=== PATIENT | male | born 1945 | race Caucasian/White ===

== ENCOUNTER → 2016-09-22 | Outpatient (REF) | payer OTHER ==
[~2016-09-22] MED LIST: AGGRCAP; ASPI1TAB PO; ASPI81CH3 PO; ATOR40TA PO; BENA25CA4 PO; CLOP75TA2 PO; DICL500C PO; ECOT325T5; EUCECRE3 TOP; IBUP200T45 PO; INSUH10VL SC; INSULADS SC; INSULANT; LIPI20TA; METO25TA2; METO25TAB PO; MILKSUS PO; MIRA3350 PO; PERCOCET PO; PRIN20TA3; PROBCAP4 PO; SENO8.6T2 PO; TRIA1CR TOP; ZETI10TA; ZETI10TA2 PO; humalog; lipitor
== END ==
LOC: M LAB REF 12:29
PROVIDERS: ATTEND Internal Medicine
DX: A49.01 Methicillin susceptible Staphylococcus aureus infection, unspecified site (principal)

== ENCOUNTER → 2017-01-21 | Outpatient (CLI) | payer BC, OTHER ==
[~2017-01-21] MED LIST changes: -ATOR40TA PO; +ATOR40TA75 PO; -SENO8.6T2 PO; +SENO8.6T5 PO; -ZETI10TA2 PO; +ZETI10TA30 PO
--- NOTE | 2017-01-22 04:20 | REP ---
Clinical: Hypertension . Comparison: 07/26/2015 . Technique: PA and lateral. Findings: The mediastinum and cardiac silhouette are table. Evidence for prior sternotomy and CABG. The lung yoon are clear and without acute consolidation, effusion, or pneumothorax. The skeletal structures are intact and normal. Impression: 1. No acute cardiopulmonary process. Signed by Harry Patel MD 01/22/2017 04:12 A
== END ==
LOC: M RAD 10:29
PROVIDERS: ATTEND Ophthalmology
DX: I10 Essential (primary) hypertension (principal)

== ENCOUNTER → 2017-05-28 | Outpatient (REF) | payer OTHER | LOC: M LAB REF 12:47 | PROVIDERS: ATTEND Internal Medicine | DX: I72.9 Aneurysm of unspecified site (principal) ==

== ENCOUNTER → 2017-09-08 | Outpatient (REF) | payer OTHER ==
[2017-09-08 15:21] LABS: C REACTIVE PROTEIN QUANTITATIV < 0.30 MG/DL (0.00-0.30)
== END ==
LOC: M LAB REF 12:29
DX: I72.9 Aneurysm of unspecified site (principal)

== ENCOUNTER → 2017-10-21 | Outpatient (REF) | payer OTHER | LOC: M LAB REF 15:34 | DX: L97.509 Non-pressure chronic ulcer of other part of unspecified foot with unspecified severity (principal) | CPT/HCPCS: 87186 ==

== ENCOUNTER → 2017-12-01 | Outpatient (REF) | payer OTHER ==
[2017-12-01 18:44] LABS: C REACTIVE PROTEIN QUANTITATIV < 0.30 MG/DL (0.00-0.30)
== END ==
LOC: M LAB REF 17:47
DX: I72.9 Aneurysm of unspecified site (principal)
CPT/HCPCS: 86140

== ENCOUNTER → 2018-02-02 | Outpatient (REF) | payer OTHER | LOC: M LAB REF 10:16 | DX: L03.039 Cellulitis of unspecified toe (principal) ==

== ENCOUNTER → 2018-02-11 | Outpatient (CLI) | payer BC, OTHER ==
[2018-02-11 08:34] LABS: EOS # 0.2 10^3/uL (0.0-0.50); EOS % 5.3 % (0.0-3.0); HEMATOCRIT 34.7 % (42.0-52.0); HEMOGLOBIN 11.4 g/dl (13.5-17.5); IMMATURE GRANULOCYTE % 0.3 % (0-3.0); LYMPH # 0.7 10^3/uL (1.5-4.5); LYMPH % 18.3 % (24.0-44.0); MEAN CORPUSCULAR HEMOGLOBIN 30.6 pg (27.0-33.0); MEAN CORPUSCULAR HGB CONC 32.9 g/dl (32.0-36.5); MEAN CORPUSCULAR VOLUME 93.3 fl (80.0-96.0); MONO # 0.4 10^3/uL (0.0-0.8); MONO % 10.8 % (0.0-5.0); NEUTROPHILS # 2.6 10^3/uL (1.8-7.7); NEUTROPHILS % 64.3 % (36.0-66.0); PLATELET COUNT, AUTOMATED 230 10^3/uL (150-450); RED BLOOD COUNT 3.72 10^6/uL (4.30-6.10); RED CELL DISTRIBUTION WIDTH 12.3 % (11.5-14.5)
[2018-02-11 08:56] LABS: ALBUMIN 3.1 GM/DL (3.2-5.2); ALBUMIN/GLOBULIN RATIO 1.03 (1.00-1.93); ALKALINE PHOSPHATASE 62 U/L (45-117); ALT/SGPT 50 U/L (12-78); ANION GAP 5 MEQ/L (8-16); AST/SGOT 42 U/L (7-37); BILIRUBIN,TOTAL 0.4 MG/DL (0.2-1.0); BLOOD UREA NITROGEN 30 MG/DL (7-18); CALCIUM LEVEL 8.5 MG/DL (8.8-10.2); CARBON DIOXIDE LEVEL 30 MEQ/L (21-32); CHLORIDE LEVEL 110 MEQ/L (98-107); CREATININE FOR GFR 0.91 MG/DL (0.70-1.30); GLOMERULAR FILTRATION RATE > 60.0 (>42); GLUCOSE, FASTING 133 MG/DL (70-100); POTASSIUM SERUM 4.9 MEQ/L (3.5-5.1); SODIUM LEVEL 145 MEQ/L (136-145); TOTAL PROTEIN 6.1 GM/DL (6.4-8.2)
== END ==
LOC: M LAB 07:47
DX: Z01.818 Encounter for other preprocedural examination (principal); M86.9 Osteomyelitis, unspecified; M79.672 Pain in left foot
CPT/HCPCS: 93005

== ENCOUNTER 2018-02-17 14:58 | Day surgery (SDC) | payer BC, OTHER ==
[2018-02-17] MEDS ORDERED: LR 1,000 ML IV (15:15)
[2018-02-17] MEDS ORDERED: LIDOCAINE 1% MDV 20ML VIAL SQ (15:15)
[2018-02-17] MEDS ORDERED: AMPICILLIN SOD/SULBACTAM SOD 3 GM in D5W MINI-BAG PLUS 100 ML IV (15:15)
[2018-02-17 15:43] LABS: BEDSIDE GLUCOSE 103 MG/DL (83-110)
[2018-02-17] MEDS ORDERED: LIDOCAINE 2% INJ 100 MG/5 ML SDV (FOR ANES.) As Ordered (17:10)
[2018-02-17] MEDS ORDERED: PROPOFOL 500 MG/50 ML VIAL As Ordered (17:15)
[2018-02-17] MEDS ORDERED: fentaNYL 100 MCG/2 ML INJECTION (J3010) As Ordered (17:15)
[2018-02-17] MEDS ORDERED: MIDAZOLAM INJ 2 MG/2 ML VIAL (J2250) As Ordered (17:15)
[2018-02-17] MEDS ORDERED: GENTAMICIN SULF INJ 80MG/2ML VIAL (J1580) As Ordered (17:52)
[2018-02-17] MEDS: ROPIvacaine 0.5% 30 ML INJECTION (J2795 PER 1MG) As Ordered (18:06)
== END 2018-02-17 19:12 | disposition home or self-care (01) ==
LOC: M SDC 14:58
DX: M86.8X7 Other osteomyelitis, ankle and foot (principal); E11.42 Type 2 diabetes mellitus with diabetic polyneuropathy; E11.51 Type 2 diabetes mellitus with diabetic peripheral angiopathy without gangrene; E11.621 Type 2 diabetes mellitus with foot ulcer; B35.1 Tinea unguium; L97.522 Non-pressure chronic ulcer of other part of left foot with fat layer exposed; L84 Corns and callosities; L97.526 Non-pressure chronic ulcer of other part of left foot with bone involvement without evidence of necrosis; I25.10 Atherosclerotic heart disease of native coronary artery without angina pectoris; I25.2 Old myocardial infarction; I10 Essential (primary) hypertension; E78.00 Pure hypercholesterolemia, unspecified; I69.998 Other sequelae following unspecified cerebrovascular disease; Z79.899 Other long term (current) drug therapy; Z79.4 Long term (current) use of insulin; Z95.5 Presence of coronary angioplasty implant and graft; Z87.891 Personal history of nicotine dependence
CPT/HCPCS: 28820

== ENCOUNTER → 2018-04-01 | Outpatient (CLI) | payer BC, OTHER ==
[2018-04-01 08:41] LABS: BASO % 0.6 % (0.0-1.0); EOS # 0.2 10^3/uL (0.0-0.50); EOS % 4.3 % (0.0-3.0); HEMATOCRIT 36.3 % (42.0-52.0); HEMOGLOBIN 11.9 g/dl (13.5-17.5); IMMATURE GRANULOCYTE % 0.2 % (0-3.0); LYMPH # 1.1 10^3/uL (1.5-4.5); LYMPH % 22.7 % (24.0-44.0); MEAN CORPUSCULAR HEMOGLOBIN 30.3 pg (27.0-33.0); MEAN CORPUSCULAR HGB CONC 32.8 g/dl (32.0-36.5); MEAN CORPUSCULAR VOLUME 92.4 fl (80.0-96.0); MONO # 0.6 10^3/uL (0.0-0.8); MONO % 12.3 % (0.0-5.0); NEUTROPHILS # 2.8 10^3/uL (1.8-7.7); NEUTROPHILS % 59.9 % (36.0-66.0); PLATELET COUNT, AUTOMATED 231 10^3/uL (150-450); RED BLOOD COUNT 3.93 10^6/uL (4.30-6.10); RED CELL DISTRIBUTION WIDTH 12.6 % (11.5-14.5); WHITE BLOOD COUNT 4.6 10^3/uL (4.0-10.0)
[2018-04-01 09:06] LABS: ALBUMIN 3.4 GM/DL (3.2-5.2); ALBUMIN/GLOBULIN RATIO 1.21 (1.00-1.93); ALKALINE PHOSPHATASE 66 U/L (45-117); ALT/SGPT 49 U/L (12-78); ANION GAP 5 MEQ/L (8-16); AST/SGOT 31 U/L (7-37); BILIRUBIN,TOTAL 0.4 MG/DL (0.2-1.0); BLOOD UREA NITROGEN 29 MG/DL (7-18); CALCIUM LEVEL 8.5 MG/DL (8.8-10.2); CARBON DIOXIDE LEVEL 29 MEQ/L (21-32); CHLORIDE LEVEL 108 MEQ/L (98-107); CREATININE FOR GFR 0.97 MG/DL (0.70-1.30); GLOMERULAR FILTRATION RATE > 60.0 (>42); GLUCOSE, FASTING 170 MG/DL (70-100); POTASSIUM SERUM 5.3 MEQ/L (3.5-5.1); SODIUM LEVEL 142 MEQ/L (136-145); TOTAL PROTEIN 6.2 GM/DL (6.4-8.2)
== END ==
LOC: M LAB 07:31
DX: Z01.818 Encounter for other preprocedural examination (principal); L97.529 Non-pressure chronic ulcer of other part of left foot with unspecified severity
CPT/HCPCS: 80053

== ENCOUNTER 2018-04-09 09:45 | Day surgery (SDC) | payer BC, OTHER ==
[~2018-04-09 09:45] MED LIST changes: -AGGRCAP; -ASPI1TAB PO; -ASPI81CH3 PO; -ATOR40TA75 PO; -BENA25CA4 PO; -CLOP75TA2 PO; -DICL500C PO; -ECOT325T5; -EUCECRE3 TOP; -IBUP200T45 PO; -INSUH10VL SC; -INSULADS SC; -INSULANT; +LIDOCAINE 1% MDV 20ML VIAL SQ; -LIPI20TA; -METO25TA2; -METO25TAB PO; -MILKSUS PO; -MIRA3350 PO; -PERCOCET PO; -PRIN20TA3; -PROBCAP4 PO; -SENO8.6T5 PO; -TRIA1CR TOP; -ZETI10TA; -ZETI10TA30 PO; -humalog; -lipitor
[2018-04-09] MEDS ORDERED: ceFAZolin 2 GM/D5W 50 ML IV BAG (J0690 PER 500MG) As Ordered (10:14)
[2018-04-09 10:24] LABS: BEDSIDE GLUCOSE 196 MG/DL (83-110)
[2018-04-09] MEDS ORDERED: LR 1,000 ML IV (10:45)
[2018-04-09] MEDS: BUPIVACAINE HCL 0.5% 10 ML VIAL As Ordered (11:45)
[2018-04-09] MEDS: LIDOCAINE 2% MDV 20 ML VIAL As Ordered (11:45)
[2018-04-09] MEDS: ROPIvacaine 0.5% 30 ML INJECTION (J2795 PER 1MG) As Ordered (12:24)
[2018-04-09] MEDS ORDERED: LIDOCAINE 2% INJ 100 MG/5 ML SDV (FOR ANES.) As Ordered (12:32)
[2018-04-09] MEDS ORDERED: MIDAZOLAM INJ 2 MG/2 ML VIAL (J2250) As Ordered (12:32)
[2018-04-09] MEDS ORDERED: ONDANSETRON 4MG/2ML VIAL (J2405) As Ordered (12:32)
[2018-04-09] MEDS ORDERED: PROPOFOL 500 MG/50 ML VIAL As Ordered (12:32)
[2018-04-09] MEDS ORDERED: fentaNYL 100 MCG/2 ML INJECTION (J3010) As Ordered (12:32)
[2018-04-09] MEDS: GENTAMICIN SULF INJ 80MG/2ML VIAL (J1580) As Ordered (12:42)
[2018-04-09 13:14] LABS: BEDSIDE GLUCOSE 157 MG/DL (83-110)
== END 2018-04-09 14:05 | disposition home or self-care (01) ==
LOC: M SDC 09:45
DX: M86.18 Other acute osteomyelitis, other site (principal); E11.621 Type 2 diabetes mellitus with foot ulcer; E11.51 Type 2 diabetes mellitus with diabetic peripheral angiopathy without gangrene; E11.42 Type 2 diabetes mellitus with diabetic polyneuropathy; L97.526 Non-pressure chronic ulcer of other part of left foot with bone involvement without evidence of necrosis; I11.9 Hypertensive heart disease without heart failure; I25.10 Atherosclerotic heart disease of native coronary artery without angina pectoris; I25.2 Old myocardial infarction; B35.1 Tinea unguium; E78.00 Pure hypercholesterolemia, unspecified; D64.9 Anemia, unspecified; I69.998 Other sequelae following unspecified cerebrovascular disease; Z79.899 Other long term (current) drug therapy; Z79.82 Long term (current) use of aspirin; Z79.4 Long term (current) use of insulin; Z87.891 Personal history of nicotine dependence; Z95.5 Presence of coronary angioplasty implant and graft; Z95.828 Presence of other vascular implants and grafts
CPT/HCPCS: 28825

== ENCOUNTER → 2018-05-03 | Outpatient (REF) | payer OTHER | LOC: M SFHCPLAZ 13:28 | DX: E11.621 Type 2 diabetes mellitus with foot ulcer (principal) ==

== ENCOUNTER → 2018-05-11 | Outpatient (REF) | payer OTHER | LOC: M LAB REF 05-12 12:48 | DX: L03.032 Cellulitis of left toe (principal); L97.522 Non-pressure chronic ulcer of other part of left foot with fat layer exposed ==

== ENCOUNTER 2018-06-18 19:08 | Emergency (ER) | payer BC, OTHER ==
[~2018-06-18] VITALS: Ht 185.4 cm; Wt 79.5 kg
[~2018-06-18 19:08] MED LIST changes: +AGGRCAP; +AMOX875T2 PO; +ASPI1TAB PO; +ASPI81CH3 PO; +ATOR1TAB21 PO; +ATOR40TA75 PO; +BENA25CA4 PO; +CEFAD50CA PO; +CLOP75TA2 PO; +DICL500C PO; +ECOT325T5; +EUCECRE3 TOP; +IBUP200T45 PO; +INSUH10VL SC; +INSULADS SC; +INSULANT; -LIDOCAINE 1% MDV 20ML VIAL SQ; +LIPI20TA; +LOSA25TA33 PO; +METO25TA2; +METO25TAB PO; +METO50TA7 PO; +MILK12002 PO; +MIRA3350 PO; +PERCOCET PO; +PRIN20TA3; +PROBCAP4 PO; +SENO8.6T5 PO; +TRIA1CR TOP; +ZETI10TA; +ZETI10TA30 PO; +humalog; +lipitor
--- NOTE | 2018-06-18 19:48 | REP ---
Clinical: Acute chest pain . Comparison: 01/21/2017 . Technique: PA and lateral. Findings: The mediastinum and cardiac silhouette are normal. The lung yoon are clear and without acute consolidation, effusion, or pneumothorax. The skeletal structures are intact and normal. Impression: 1. No acute cardiopulmonary process. Electronically Signed by Harry Patel MD 06/18/2018 07:39 P
[2018-06-18 19:57] LABS: BASO % 0.4 % (0.0-1.0); EOS # 0.1 10^3/uL (0.0-0.50); EOS % 0.8 % (0.0-3.0); HEMOGLOBIN 11.7 g/dl (13.5-17.5); LYMPH # 0.5 10^3/uL (1.5-4.5); MEAN CORPUSCULAR HEMOGLOBIN 30.3 pg (27.0-33.0); MEAN CORPUSCULAR HGB CONC 32.5 g/dl (32.0-36.5); MEAN CORPUSCULAR VOLUME 93.3 fl (80.0-96.0); MONO # 0.5 10^3/uL (0.0-0.8); MONO % 6.2 % (0.0-5.0); NEUTROPHILS # 6.6 10^3/uL (1.8-7.7); NEUTROPHILS % 85.1 % (36.0-66.0); PLATELET COUNT, AUTOMATED 164 10^3/uL (150-450); RED BLOOD COUNT 3.86 10^6/uL (4.30-6.10); WHITE BLOOD COUNT 7.7 10^3/uL (4.0-10.0)
[2018-06-18] MEDS ORDERED: NEOSPORIN OINT 0.9 GM PKT (FLOOR STOCK) As Ordered ONE (19:59)
[2018-06-18 20:07] LABS: INR 0.9; PROTHROMBIN TIME 12.2 SECONDS (12.1-14.4)
[2018-06-18 20:08] LABS: PARTIAL THROMBOPLASTIN TIME 26.4 SECONDS (25.4-37.6)
[2018-06-18] MEDS ORDERED: ASPIRIN 81 MG CHEW TABLET PO ONE (20:15)
[2018-06-18 20:33] LABS: BLOOD UREA NITROGEN 42 MG/DL (7-18); CALCIUM LEVEL 8.9 MG/DL (8.8-10.2); CARBON DIOXIDE LEVEL 22 MEQ/L (21-32); CHLORIDE LEVEL 105 MEQ/L (98-107); CREATININE FOR GFR 1.23 MG/DL (0.70-1.30); GLOMERULAR FILTRATION RATE > 60.0 (>42); GLUCOSE, FASTING 437 MG/DL (70-100); POTASSIUM SERUM 5.7 MEQ/L (3.5-5.1); SODIUM LEVEL 139 MEQ/L (136-145)
[2018-06-18 20:34] LABS: ALBUMIN 3.5 GM/DL (3.2-5.2); ALT/SGPT 54 U/L (12-78); BILIRUBIN,DIRECT 0.2 MG/DL (0.0-0.2); BILIRUBIN,TOTAL 0.7 MG/DL (0.2-1.0); CPK CREATINE PHOSPHOKINASE 142 U/L (39-308); LIPASE 503 U/L (73-393); MB/CK RELATIVE INDEX 3.17 (< OR =4); TROPONIN I 0.04 NG/ML (< 0.10)
[2018-06-18] MEDS: NITROGLYCERIN 0.4 MG SUBL TABLET SL PRN ×3 (21:03→23:07)
[2018-06-18] MEDS ORDERED: NS 1,000 ML IV ONE (21:30)
[2018-06-18] MEDS ORDERED: ACETAMINOPHEN TAB 650MG DOSE (2X325MG) PO ONE (21:30)
[2018-06-18] MEDS ORDERED: HumuLIN R (REGULAR) INSULIN (NovoLIN R) **100U/ML** PER UNIT IV STA (22:08)
[2018-06-18 22:43] LABS: INFLUENZA A AMPLIFICATION NEGATIVE (NEGATIVE); INFLUENZA B AMPLIFICATION NEGATIVE (NEGATIVE)
[2018-06-18] MEDS ORDERED: HEPARIN DRIP 25,000 UNITS in APPROPRIATE DILUENT 1 EA IV SCH (22:43)
[2018-06-18] MEDS ORDERED: HEPARIN SOD (PORCINE) 5000 UNITS/ML VIAL IV ONE (22:45)
[2018-06-18] MEDS ORDERED: CLOPIDOGREL 300 MG TAB (PLAVIX) PO ONE (22:45)
[2018-06-18] MEDS ORDERED: CLOPIDOGREL 75 MG TAB As Ordered ONE (22:55)
[2018-06-18] MEDS ORDERED: NITROGLYCERIN 2% OINT 1 GM *U/D* PKT TOP ONE (23:00)
[2018-06-18 23:08] VITALS: BP 149/67
[2018-06-18 23:35] VITALS: BP 147/67
[2018-06-18 23:44] LABS: BLOOD UREA NITROGEN 40 MG/DL (7-18); CALCIUM LEVEL 8.6 MG/DL (8.8-10.2); CARBON DIOXIDE LEVEL 20 MEQ/L (21-32); CHLORIDE LEVEL 108 MEQ/L (98-107); CPK CREATINE PHOSPHOKINASE 159 U/L (39-308); CREATININE FOR GFR 1.24 MG/DL (0.70-1.30); GLOMERULAR FILTRATION RATE > 60.0 (>42); GLUCOSE, FASTING 411 MG/DL (70-100); LIPASE 311 U/L (73-393); MB/CK RELATIVE INDEX 3.77 (< OR =4); POTASSIUM SERUM 5.2 MEQ/L (3.5-5.1); SODIUM LEVEL 141 MEQ/L (136-145); TROPONIN I 0.66 NG/ML (< 0.10)
--- NOTE | 2018-06-19 19:58 | ECGEPIP ---
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
--- NOTE | 2018-06-19 20:04 | ECGEPIP ---
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
== END 2018-06-18 23:42 | disposition short-term general hospital (02) ==
LOC: M ED 19:08
DX: I20.0 Unstable angina (principal); I25.10 Atherosclerotic heart disease of native coronary artery without angina pectoris; E11.9 Type 2 diabetes mellitus without complications; I73.9 Peripheral vascular disease, unspecified; I72.9 Aneurysm of unspecified site; Z95.5 Presence of coronary angioplasty implant and graft; Z87.891 Personal history of nicotine dependence; Z79.82 Long term (current) use of aspirin; Z79.4 Long term (current) use of insulin; Z79.899 Other long term (current) drug therapy

== ENCOUNTER 2018-07-26 15:04 | Outpatient (RCR) | payer BC, OTHER ==
[~2018-07-26 15:04] MED LIST changes: +AMIO200T PO; +ATOR80TA59 PO; +FURO20TA2 PO; +LOSA25TA14 PO; -LOSA25TA33 PO; +MILK120011 PO; -MILK12002 PO; +PROTPAK PO
--- NOTE | 2018-07-26 15:11 | CARECAPL ---
Assessment Account #s: Initial Assessment General Diagnoses: Stent Date of event: Jun 23, 2018 Physician: Feng Shields Allergies: Coded Allergies: No Known Allergies (Verified , 04/09/18) Date Entered Program: Jul 26, 2018 Risk strat for cardiac event: Low Exercise Date: Jul 26, 2018 Assessment: Initial Assessment Exercise Prescription Plan to educate about cardiac risk factors and to build endurance through a monitored exercise program Modalities initiated: Nustep (l2 mts 2.5 rpe 2.5), Arm Aerometer (1.0 mts 2.52 rpe 2.5), Dumbells (2# rpe 2), Recumbent Bike (l1 mts 2.9 rpe 4) Frequency: 2-3 Duration (Minutes) .30-60 minutes total exercise a day.6-15 work intervals in minutes. rest intervals in minutes. Functional Capacity Goal Sustained Metabolic Equivalent of a task (MET) goal of 3.5-4.0 for 15-20 minutes. Progression (METS) Increase by: .5METS every: 2 sessions Angina with ex: No Target Heart Rate rest + 35-40 Resistance Training: Yes Weight (pounds): 2 Reps: 6-8 Hypertension: Yes Hypertension controlled with: Diet Resting 150/70 Meds see below Medications Scheduled (Aspirin Childrens), 81 MG PO DAILY, (Reported) (Protonix), 40 MG PO DAILY, (Reported) Amiodarone HCl (Amiodarone HCl), 200 MG PO DAILY, (Reported) Atorvastatin Calcium (Atorvastatin Calcium), 80 MG PO QHS, (Reported) Cefadroxil Monohydrate (Cefadroxil), 500 MG PO BID, (Reported) Clopidogrel Bisulfate (Clopidogrel), 75 MG PO DAILY, (Reported) Ezetimibe (Zetia), 10 MG PO QHS, (Reported) Furosemide (Furosemide), 20 MG PO DAILY, (Reported) Lactobacillus Acidophilus (Probiotic), 1 CAP PO DAILY, (Reported) Losartan Potassium (Losartan Potassium), 25 MG PO DAILY, (Reported) Metoprolol Tartrate (Metoprolol Tartrate), 50 MG PO BID, (Reported) Miscellaneous Medications Insulin Aspart (Novolog), 0 SC, (Reported) Discontinued Medications Atorvastatin Calcium (Atorvastatin Calcium), 20 MG PO DAILY, (Reported) Discontinued Reason: Pt states not taking Target Goals Individual exercise Rx (1) BP 140/90 or 130/80 if DM or CKD (1) Aerobic active 30+min 5 days per week (1) Nutrition Date: Jul 26, 2018 Assessment: Initial Assessment Lipid- med/supplement Atorvastatin calcium Diabetes Diabetes: Yes Fasting Blood Sugar: 90 Diabetes medication insulin pump Monitor Blood Sugar at home: Yes Frequency continously Weight Management Weight (lbs): 178.2 Height (inches): 73 Waist Circumference (Inches): 40 BMI: 23.5 Special Diet: low salt, mediteranean diet, low-fat Alcohol: none Diet Access Tool: Rate your plate Score: 57 Intervention Spa Manager/Esthetician Consult: Yes Nurse/patient discussion: Yes Dietary Goals to make better food choices Diet Class: Yes Referral to Diabetes education: No Referral to lipid clinic: No Referral to weight mangement p: No Education S&S hypo/hyper glycemia, Relate Diabetes in CAD, Eating Healthy Target goal LDL-C<100 if triglycerides are >200 Non-HDL-C should be <130 (1) LDL-C<70 for high risk patients (4) HbA1c<7% (1) BMI<25 Waist cir<40in M/<35in F (1) Education Date: Jul 26, 2018 Assessment: Initial Assessment Learning Barriers: cognitive (hx stroke with some expressive aphasia) Knowledge Test Score: 10 Family Support: Yes Tobacco use: No Intervention Education class schedule given: Yes Attended education classes: Yes Education: CAD, Risk factors, med compliance, cardiac A&P, Angina S/S, Sexuality Target Goals Complete cessation of tobacco use (1). Psychosocial Date: Jul 26, 2018 Assessment: Initial Assessment Psych Test (Initial/Discharge) Tool Used: CESD Score: 4 Intervention Physician Consult: No Physician Referral: No Med Change: No Stress Management Class: Yes Uses Stress Management Skills: Yes Education Education: Coping Techniques, S/S depression, Relaxation Techniques Target Goal Assess presence or absence of depression using a valid screening tool (1). Maximize coping skills (2). Positive support system (2). Patient/Program Goal Preventative Medication: Yes Clopidogrel, Yes Statin/OTR lipid Lowering Fall Risk Assess: Yes Provider Assessment Session Number: 1 Provider Assessment: Proceed with rehab Monique Quesada RN Jul 26, 2018 15:11
== END 2018-07-29 ==
LOC: M CR 15:04
PROVIDERS: ATTEND Internal Medicine Interventional Cardiology
DX: Z98.61 Coronary angioplasty status (principal)

== ENCOUNTER 2018-08-20 15:01 | Outpatient (RCR) | payer BC, OTHER ==
--- NOTE | 2018-08-16 08:26 | CARECAPL ---
Assessment Account #s: Re-Assessment I General Diagnoses: Stent Date of event: Jun 23, 2018 Physician: Feng Shields Allergies: Coded Allergies: No Known Allergies (Verified , 04/09/18) Date Entered Program: Jul 26, 2018 Risk strat for cardiac event: Low Exercise Date: Aug 11, 2018 Assessment: Re-Assessment I Exercise Prescription Modalities initiated: Arm Aerometer (mets 2.2 RPE 2.5), Resistance Band (mets 3.6 RPE 2.5) Frequency: 2-3 Duration (Minutes) minutes total exercise a day. work intervals in minutes. rest intervals in minutes. Functional Capacity Goal Sustained Metabolic Equivalent of a task (MET) goal of for minutes. Progression (METS) Increase by: METS every: sessions Angina with ex: No Target Heart Rate rest + 35-40 Resistance Training: Yes Weight (pounds): 3 Reps: 8-12 Medications Scheduled (Aspirin Childrens), 81 MG PO DAILY, (Reported) (Protonix), 40 MG PO DAILY, (Reported) Amiodarone HCl (Amiodarone HCl), 200 MG PO DAILY, (Reported) Atorvastatin Calcium (Atorvastatin Calcium), 80 MG PO QHS, (Reported) Cefadroxil Monohydrate (Cefadroxil), 500 MG PO BID, (Reported) Clopidogrel Bisulfate (Clopidogrel), 75 MG PO DAILY, (Reported) Ezetimibe (Zetia), 10 MG PO QHS, (Reported) Furosemide (Furosemide), 20 MG PO DAILY, (Reported) Lactobacillus Acidophilus (Probiotic), 1 CAP PO DAILY, (Reported) Losartan Potassium (Losartan Potassium), 25 MG PO DAILY, (Reported) Metoprolol Tartrate (Metoprolol Tartrate), 50 MG PO BID, (Reported) Miscellaneous Medications Insulin Aspart (Novolog), 0 SC, (Reported) Current BP 148/74 Med Change: No Target Goals Individual exercise Rx (1) BP 140/90 or 130/80 if DM or CKD (1) Aerobic active 30+min 5 days per week (1) Nutrition Date: Aug 16, 2018 Assessment: Re-Assessment I Med Change: No Medication Change: No Random Blood Sugar: 94 Blood sugar in range: Yes Current Weight (pounds): 178.2 Intervention Nurse/patient discussion: Yes Diet Class: Yes Education Goals Met: Yes Target goal LDL-C<100 if triglycerides are >200 Non-HDL-C should be <130 (1) LDL-C<70 for high risk patients (4) HbA1c<7% (1) BMI<25 Waist cir<40in M/<35in F (1) Education Date: Aug 16, 2018 Assessment: Re-Assessment I Target Goals Complete cessation of tobacco use (1). Psychosocial Date: Aug 16, 2018 Assessment: Re-Assessment I Med Change: No Stress Management Class: Yes Uses Stress Management Skills: Yes Education Education: Coping Techniques, S/S depression, Relaxation Techniques Education Goals Met: Yes Target Goal Assess presence or absence of depression using a valid screening tool (1). Maximize coping skills (2). Positive support system (2). Patient/Program Goal Preventative Medication: Yes Aspirin, Yes Clopidogrel, Yes Beta blockade, Yes Statin/OTR lipid Lowering Fall Risk Assess: Yes Provider Assessment Session Number: 4 Provider Assessment: Proceed with rehab Meeta Zheng RN Aug 16, 2018 08:26
[~2018-08-20 15:01] MED LIST changes: +AMIO100T PO; +BENZ200C70 PO; +COUM1TAB14 PO; +COUM6TAB PO; +GUAI100S8 PO; +HYDR-643 PO; +MAG-400T7 PO; +METO25TA4 PO; +POTA1TAB14 PO; +TORS10TA3 PO
== END 2018-08-26 ==
LOC: M CR 15:01
PROVIDERS: ATTEND Internal Medicine Interventional Cardiology
DX: Z95.2 Presence of prosthetic heart valve (principal)

== ENCOUNTER 2018-09-22 10:38 | Outpatient (RCR) | payer BC, OTHER ==
--- NOTE | 2018-09-08 12:16 | CARECAPL ---
Assessment Account #s: Re-Assessment II General Diagnoses: Stent Date of event: Jun 23, 2018 Physician: Feng Shields Allergies: Coded Allergies: No Known Allergies (Verified , 04/09/18) Date Entered Program: Jul 26, 2018 Risk strat for cardiac event: Low Exercise Date: Sep 06, 2018 Assessment: Re-Assessment II Exercise Prescription Modalities initiated: Nustep (mets 3.1 RPE 3), Arm Aerometer (mets 2.53 RPE 2.5), Dumbells (3lbs RPE 3), Recumbent Bike (mets 3.7 RPE 3.5) Frequency: 2 Duration (Minutes) minutes total exercise a day. work intervals in minutes. rest intervals in minutes. Functional Capacity Goal Sustained Metabolic Equivalent of a task (MET) goal of for minutes. Intensity: 3-Moderate Progression (METS) Increase by: METS every: sessions Hypertension: No Hypertension controlled with: Medication Resting 152/64 Peak Exercise BP 140/66 Meds metoprolol , amiodaone Medications Scheduled (Aspirin Childrens), 81 MG PO DAILY, (Reported) (Protonix), 40 MG PO DAILY, (Reported) Amiodarone HCl (Amiodarone HCl), 100 MG PO DAILY, (Reported) Atorvastatin Calcium (Atorvastatin Calcium), 80 MG PO QHS, (Reported) Cefadroxil Monohydrate (Cefadroxil), 500 MG PO BID, (Reported) Ezetimibe (Zetia), 10 MG PO QHS, (Reported) Furosemide (Furosemide), 20 MG PO DAILY, (Reported) Hydroxyzine HCl (Hydroxyzine HCl), 10 MG PO BID, (Reported) Lactobacillus Acidophilus (Probiotic), 1 CAP PO DAILY, (Reported) Losartan Potassium (Losartan Potassium), 25 MG PO DAILY, (Reported) Magnesium Oxide (Magnesium-Oxide), 800 MG PO BID, (Reported) Metoprolol Tartrate (Metoprolol Tartrate), 25 MG PO BID, (Reported) Potassium Chloride (Potassium Chloride ER), 20 MEQ PO twice/week wed & sat, (Reported) Torsemide (Torsemide), 10 MG PO 2XW wed & Sat, (Reported) Warfarin Sod (Coumadin), 4 MG PO DAILY , Sat, (Reported) Warfarin Sod (Coumadin), 6 MG PO DAILY Becker, M, W, Fr, (Reported) Scheduled PRN (Cough Syrup), 10 ML PO QID PRN for COUGH, (Reported) Benzonatate (Benzonatate), 200 MG PO TID PRN for COUGH, (Reported) Hydroxyzine HCl (Hydroxyzine HCl), 10 MG PO Q6HP PRN for ANXIETY, (Reported) Miscellaneous Medications Insulin Aspart (Novolog), 0 SC, (Reported) Current BP 152/64 Med Change: No Education Goals Met: Yes Target Goals Individual exercise Rx (1) BP 140/90 or 130/80 if DM or CKD (1) Aerobic active 30+min 5 days per week (1) Nutrition Date: Sep 08, 2018 Assessment: Re-Assessment II Med Change: No Medication Change: No Random Blood Sugar: 120 Blood sugar in range: Yes Current Weight (pounds): 178.2 Education Goals Met: Yes Target goal LDL-C<100 if triglycerides are >200 Non-HDL-C should be <130 (1) LDL-C<70 for high risk patients (4) HbA1c<7% (1) BMI<25 Waist cir<40in M/<35in F (1) Education Date: Sep 08, 2018 Assessment: Re-Assessment II Education Goals Met: Yes Target Goals Complete cessation of tobacco use (1). Psychosocial Date: Sep 08, 2018 Assessment: Re-Assessment II Med Change: No Stress Management Class: Yes Uses Stress Management Skills: Yes Education Education: Coping Techniques, S/S depression, Relaxation Techniques Education Goals Met: Yes Target Goal Assess presence or absence of depression using a valid screening tool (1). Maximize coping skills (2). Positive support system (2). Fall Risk Assess: No Provider Assessment Session Number: 7 Provider Assessment: Proceed with rehab eMeta Zheng RN Sep 08, 2018 12:16
== END 2018-09-26 ==
LOC: M CR 10:38
PROVIDERS: ATTEND Internal Medicine Interventional Cardiology
DX: Z95.2 Presence of prosthetic heart valve (principal)

== ENCOUNTER 2018-10-06 12:34 | Outpatient (RCR) | payer BC, OTHER ==
--- NOTE | 2018-09-27 13:30 | CARECAPL ---
Assessment Account #s: Re-Assessment II (reassessment III) General Diagnoses: Stent Date of event: Sep 27, 2018 Physician: Feng Shields Allergies: Coded Allergies: No Known Allergies (Verified , 04/09/18) Date Entered Program: Jul 26, 2018 Risk strat for cardiac event: Low Exercise Date: Sep 27, 2018 Assessment: Re-Assessment II (reassessment III) Exercise Prescription Modalities initiated: Treadmill, Nustep, Arm Aerometer, Dumbells Frequency: 2 Duration (Minutes) minutes total exercise a day. work intervals in minutes. rest intervals in minutes. Functional Capacity Goal Sustained Metabolic Equivalent of a task (MET) goal of for minutes. Intensity: 3-Moderate Progression (METS) Increase by: METS every: sessions Angina with ex: No Resistance Training: Yes Weight (pounds): 3 Reps: 8-12 Medications Scheduled (Aspirin Childrens), 81 MG PO DAILY, (Reported) (Protonix), 40 MG PO DAILY, (Reported) Amiodarone HCl (Amiodarone HCl), 100 MG PO DAILY, (Reported) Atorvastatin Calcium (Atorvastatin Calcium), 80 MG PO QHS, (Reported) Cefadroxil Monohydrate (Cefadroxil), 500 MG PO BID, (Reported) Ezetimibe (Zetia), 10 MG PO QHS, (Reported) Hydroxyzine HCl (Hydroxyzine HCl), 10 MG PO BID, (Reported) Lactobacillus Acidophilus (Probiotic), 1 CAP PO DAILY, (Reported) Losartan Potassium (Losartan Potassium), 25 MG PO DAILY, (Reported) Magnesium Oxide (Magnesium-Oxide), 800 MG PO BID, (Reported) Metoprolol Tartrate (Metoprolol Tartrate), 25 MG PO BID, (Reported) Potassium Chloride (Potassium Chloride ER), 20 MEQ PO twice/week thu & sat, (Reported) Warfarin Sod (Coumadin), 4 MG PO DAILY , Sat, (Reported) Warfarin Sod (Coumadin), 6 MG PO DAILY Becker, M, W, Fr, (Reported) Scheduled PRN (Cough Syrup), 10 ML PO QID PRN for COUGH, (Reported) Benzonatate (Benzonatate), 200 MG PO TID PRN for COUGH, (Reported) Hydroxyzine HCl (Hydroxyzine HCl), 10 MG PO Q6HP PRN for ANXIETY, (Reported) Miscellaneous Medications Insulin Aspart (Novolog), 0 SC, (Reported) Discontinued Medications Furosemide (Furosemide), 20 MG PO DAILY, (Reported) Discontinued Reason: Pt states not taking Torsemide (Torsemide), 10 MG PO 2XW wed & Sat, (Reported) Discontinued Reason: Pt states not taking Current BP 132/68 Med Change: No Intervention Home exercise: Type (walking, hand weights, join local gym) Resistance Training: Yes Education: Self pulse, Ex safety, S/S to report, Low NA diet, BP medication, RPE Scale, Equipment orientation, warm up/cool down, Understand BP, Physical Active Education Goals Met: Yes Target Goals Individual exercise Rx (1) BP 140/90 or 130/80 if DM or CKD (1) Aerobic active 30+min 5 days per week (1) Nutrition Date: Sep 27, 2018 Assessment: Re-Assessment II (reassessment III) Med Change: No Current Weight (pounds): 178.2 Intervention Diet Class: Yes Education Eating Healthy Target goal LDL-C<100 if triglycerides are >200 Non-HDL-C should be <130 (1) LDL-C<70 for high risk patients (4) HbA1c<7% (1) BMI<25 Waist cir<40in M/<35in F (1) Education Date: Sep 27, 2018 Assessment: Re-Assessment II (reassessment III) Intervention Education class schedule given: Yes Attended education classes: Yes Education: CAD, Risk factors, med compliance, cardiac A&P, Angina S/S, Sexuality Target Goals Complete cessation of tobacco use (1). Psychosocial Date: Sep 27, 2018 Assessment: Re-Assessment II (reassessment) Stress Management Class: Yes Uses Stress Management Skills: Yes Education Education: Coping Techniques, S/S depression, Relaxation Techniques Education Goals Met: Yes Target Goal Assess presence or absence of depression using a valid screening tool (1). Maximize coping skills (2). Positive support system (2). Provider Assessment Session Number: 11 Provider Assessment: No changes Monique Quesada RN Sep 27, 2018 13:29
[~2018-10-06 12:34] MED LIST changes: +AGGR1CAP; -AGGRCAP; -AMIO100T PO; +AMIO100T5 PO; -ASPI1TAB PO; -ASPI81CH3 PO; +ASPI81CH48 PO; +ASPI81TA26 PO; +METO1TAB63 PO; -METO25TAB PO; +TRIA0.1C60 TOP; -TRIA1CR TOP
--- NOTE | 2018-10-13 11:25 | CARECAPL ---
Assessment Account #s: Re-Assessment II (discharge assessment) General Diagnoses: Stent Date of event: Jun 23, 2018 Physician: Feng Shields Allergies: Coded Allergies: No Known Allergies (Verified , 04/09/18) Date Entered Program: Jul 26, 2018 Risk strat for cardiac event: Low Exercise Date: Oct 13, 2018 Assessment: Followup/Discharge Exercise Prescription Plan educate about cardiac risk factors, exercise through a monitored exercise program Modalities initiated: Nustep, Arm Aerometer (3.0 MTS 3.3 RPE 3), Recumbent Bike (R3 MTS 4.2 RPE 3.5) Frequency: 2-3 Duration (Minutes) 30-60 minutes total exercise a day. 8-10 work intervals in minutes. prn rest intervals in minutes. Functional Capacity Goal Sustained Metabolic Equivalent of a task (MET) goal of for minutes. Intensity: 3-Moderate Progression (METS) Increase by: .5 METS every: 2 sessions Angina with ex: No Resistance Training: Yes Weight (pounds): 3 Reps: 6-8 Hypertension: Yes Hypertension controlled with: Diet Resting 132/60 Peak Exercise BP 140/60 Meds see below Medications Scheduled Amiodarone HCl (Amiodarone HCl), 100 MG PO DAILY, (Reported) Aspirin (Aspirin), 81 MG PO DAILY, (Reported) Atorvastatin Calcium (Atorvastatin Calcium), 80 MG PO QHS, (Reported) Cefadroxil Monohydrate (Cefadroxil), 500 MG PO BID, (Reported) Ezetimibe (Zetia), 10 MG PO QHS, (Reported) Hydroxyzine HCl (Hydroxyzine HCl), 10 MG PO BID, (Reported) Lactobacillus Acidophilus (Probiotic), 1 CAP PO DAILY, (Reported) Losartan Potassium (Losartan Potassium), 25 MG PO DAILY, (Reported) Magnesium Oxide (Magnesium Oxide), 800 MG PO BID, (Reported) Metoprolol Tartrate (Metoprolol Tartrate), 25 MG PO BID, (Reported) Pantoprazole Sodium (Protonix), 40 MG PO DAILY, (Reported) Potassium Chloride (Potassium Chloride), 20 MEQ PO twice/week wed & sat, (Reported) Warfarin Sodium (Coumadin), 4 MG PO DAILY , Sat, (Reported) Warfarin Sodium (Coumadin), 6 MG PO DAILY Becker, M, W, Fr, (Reported) Scheduled PRN Benzonatate (Benzonatate), 200 MG PO TID PRN for COUGH, (Reported) Guaifenesin (Guaifenesin), 10 ML PO QID PRN for COUGH, (Reported) Hydroxyzine HCl (Hydroxyzine HCl), 10 MG PO Q6HP PRN for ANXIETY, (Reported) Miscellaneous Medications Insulin Human Lispro (Novolog), 0 SC, (Reported) Education Goals Met: Yes Target Goals Individual exercise Rx (1) BP 140/90 or 130/80 if DM or CKD (1) Aerobic active 30+min 5 days per week (1) Nutrition Date: Oct 13, 2018 Assessment: Followup/Discharge Med Change: No Monitor Blood Sugar at home: Yes (has insulin pump with constant monitoring of blood sugar) Medication Change: No Random Blood Sugar: 118 Blood sugar in range: Yes Diet Access Tool: Rate your plate (did not complete on d/c) Intervention Calender Inspector Consult: No Nurse/patient discussion: No Diet Class: Yes Referral to Diabetes education: Yes Education S&S hypo/hyper glycemia, Relate Diabetes in CAD, Eating Healthy Education Goals Met: Yes Target goal LDL-C<100 if triglycerides are >200 Non-HDL-C should be <130 (1) LDL-C<70 for high risk patients (4) HbA1c<7% (1) BMI<25 Waist cir<40in M/<35in F (1) Education Date: Oct 13, 2018 Assessment: Followup/Discharge Learning Barriers: cognitive (hx stroke, unable to write well) Knowledge Test Score: 8 Family Support: Yes Tobacco use: No Intervention Referral to smoking cessation: No Individual education and couns: No Tobacco Adjunct: No Education class schedule given: Yes Attended education classes: Yes Education: CAD, Risk factors, med compliance, cardiac A&P, Angina S/S, Sexuality Education Goals Met: Yes Target Goals Complete cessation of tobacco use (1). Psychosocial Date: Oct 13, 2018 Assessment: Followup/Discharge Psych Test (Initial/Discharge) Tool Used: CESD (states "same as before") Score: 4 Intervention Physician Consult: No Physician Referral: No Med Change: No Stress Management Class: Yes Uses Stress Management Skills: Yes Education Education: Coping Techniques, S/S depression Education Goals Met: Yes Target Goal Assess presence or absence of depression using a valid screening tool (1). Maximize coping skills (2). Positive support system (2). Patient/Program Goal Preventative Medication: Yes Aspirin, Yes Beta blockade, Yes Statin/OTR lipid Lowering Fall Risk Assess: Yes (17 seconds on tug test) Provider Assessment Session Number: 15 Provider Assessment: No changes Monique Quesada RN Oct 13, 2018 11:25
== END 2018-10-26 ==
LOC: M CR 12:34
PROVIDERS: ATTEND Internal Medicine Interventional Cardiology
DX: Z95.2 Presence of prosthetic heart valve (principal)

== ENCOUNTER → 2018-11-02 | Outpatient (REF) | payer OTHER | LOC: M LAB REF 12:54 | PROVIDERS: ATTEND Internal Medicine | DX: I72.9 Aneurysm of unspecified site (principal) ==

== ENCOUNTER → 2019-08-02 | Outpatient (REF) | payer OTHER ==
[~2019-08-02] MED LIST changes: +GUAI100S51 PO; -GUAI100S8 PO; +ZETI10TA16 PO; -ZETI10TA30 PO
== END ==
LOC: M LAB REF 12:08
PROVIDERS: ATTEND Internal Medicine
DX: A49.01 Methicillin susceptible Staphylococcus aureus infection, unspecified site (principal)

== ENCOUNTER → 2019-12-20 | Outpatient (CLI) | payer BC, OTHER ==
[~2019-12-20] MED LIST changes: -AMIO200T PO; +AMIO200T3 PO; -COUM1TAB14 PO; +COUM4TAB8 PO; -COUM6TAB PO; +COUM6TAB10 PO
--- NOTE | 2019-12-20 15:44 | REP ---
BILATERAL LOWER EXTREMITY DUPLEX DOPPLER ARTERIAL ULTRASOUND: Real-time sonographic evaluation and duplex Doppler interrogation of the bilateral lower extremity arterial system is performed. GAIL could not be performed bilaterally due to noncompressible vessels. There is diffuse atherosclerotic calcific plaque noted especially in the distal lower legs bilaterally. There are diffuse triphasic waveforms bilaterally expect for a biphasic waveform in the proximal posterior tibial area on the left and monophasic waveforms in the distal left anterior posterior tibial arteries . No definite focal hemodynamically significant stenosis is seen bilaterally. Peak systolic velocity of the distal abdominal aorta is 135.4 cm/s. Right Peak Left Peak Systolic Velocity Systolic velocity Common iliac artery 205.9 cm/s 116.5 cm/s External iliac artery 122.9 cm/s 130.4 cm/s Common femoral artery 165.5 cm/s 118.3 cm/s Profunda 131.4 cm/s 103.5 cm/s SFA 112.1 cm/s 122.9 cm/s Popliteal 79.9 cm/s 70.0 cm/s Proximal JARET 81.8 cm/s 88.8 cm/s Tibial peroneal trunk 55.7 cm/s 43.7 cm/s Proximal POLICY CHECKER 38.7 cm/s 51.5 cm/s Distal POLICY CHECKER 88.4 cm/s 119.7 cm/s Distal JARET 108.6 cm/s 104.8 cm/s Electronically Signed by Dalton Yadav MD 12/21/2019 04:39 P
== END ==
LOC: M RAD 11:40
PROVIDERS: ATTEND Physician Assistant
DX: I70.203 Unspecified atherosclerosis of native arteries of extremities, bilateral legs (principal); Z95.820 Peripheral vascular angioplasty status with implants and grafts

== ENCOUNTER → 2020-03-09 | Outpatient (REF) | payer OTHER | LOC: M LAB REF 17:05 | PROVIDERS: ATTEND Internal Medicine | DX: I72.9 Aneurysm of unspecified site (principal); L03.116 Cellulitis of left lower limb ==

== ENCOUNTER → 2020-06-13 | Outpatient (CLI) | payer SELFPAY | LOC: M LABSMTC 10:59 | PROVIDERS: ATTEND Pediatrics | DX: Z20.828 Contact with and (suspected) exposure to other viral communicable diseases (principal) ==

== ENCOUNTER → 2020-07-04 | Outpatient (REF) | payer OTHER ==
[2020-07-04 17:18] LABS: PERCENT SATURATION 29.7 % (19.7-50.0)
[2020-07-05 20:33] LABS: FOLATE 14.7 NG/ML
== END ==
LOC: M LAB REF 16:25
PROVIDERS: ATTEND Internal Medicine
DX: D64.9 Anemia, unspecified (principal)

== ENCOUNTER → 2020-07-04 | Outpatient (REF) | payer OTHER | LOC: M LAB REF 12:34 | PROVIDERS: ATTEND Internal Medicine | DX: L03.116 Cellulitis of left lower limb (principal) ==

== ENCOUNTER → 2020-09-19 | Outpatient (CLI) | payer BC, OTHER ==
[~2020-09-19] MED LIST changes: +CEFA500C2 PO; -CEFAD50CA PO
--- NOTE | 2020-09-19 15:05 | REP ---
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 TECHNIQUE: Real time yadav scale and Duplex Doppler evaluation of the bilateral lower extremity arterial vasculature using linear high frequency transducer. FINDINGS: Yadav scale and duplex doppler images demonstrate moderate diffuse plaquing bilaterally. There are bilateral triphasic and biphasic waveforms diffusely. There appears to be mild stenosis of the left profunda. Otherwise there is no evidence of hemodynamically significant stenosis bilaterally there is no evidence of arterial occlusion. Peak systolic velocities (cm/sec) Common femoral artery: Right 135; Left 117 Profunda femoris: Right 143; Left 194 SFA (proximal): Right 161; Left 145 SFA (mid): Right 109; Left 142 SFA (distal): Right 86; Left 93 Popliteal artery: Right 94; Left 78 JARET (prox.): Right 88; Left 104 Tibioperoneal trunk: Right 70; Left 53 TEACHER'S ASSISTANT (prox.): Right 73; Left the 74 TEACHER'S ASSISTANT (distal): Right 87; Left 77 JARET (distal): Right 123; Left 45 IMPRESSION: Moderate diffuse plaquing bilaterally. Mild stenosis left profunda with no other evidence of significant stenosis or arterial occlusion. <Electronically signed by Dalton Yadav > 09/19/20 [id number]
== END ==
LOC: M RAD 12:41
PROVIDERS: ATTEND Physician Assistant
DX: I70.203 Unspecified atherosclerosis of native arteries of extremities, bilateral legs (principal)

== ENCOUNTER → 2020-11-20 | Outpatient (REF) | payer BC, OTHER | LOC: M LAB REF 12:08 | PROVIDERS: ATTEND Internal Medicine | DX: A49.01 Methicillin susceptible Staphylococcus aureus infection, unspecified site (principal) ==

== ENCOUNTER → 2021-03-26 | Outpatient (REF) | payer OTHER, BC | LOC: M LAB REF 11:46 | PROVIDERS: ATTEND Internal Medicine | DX: A49.01 Methicillin susceptible Staphylococcus aureus infection, unspecified site (principal) ==

== ENCOUNTER → 2021-07-29 | Outpatient (REF) | payer OTHER, BC ==
[~2021-07-29] MED LIST changes: -AMIO200T3 PO; +AMIO200T49 PO; -IBUP200T45 PO; +IBUP200T46 PO; +LOSA25TA13 PO; -LOSA25TA14 PO
== END ==
LOC: M LAB REF 16:33
PROVIDERS: ATTEND Internal Medicine
DX: R74.01 Elevation of levels of liver transaminase levels (principal)

== ENCOUNTER → 2021-10-30 | Outpatient (REF) | payer OTHER, BC | LOC: M LAB REF 16:45 | PROVIDERS: ATTEND Internal Medicine | DX: A49.01 Methicillin susceptible Staphylococcus aureus infection, unspecified site (principal) ==

== ENCOUNTER → 2021-11-14 | Outpatient (CLI) | payer BC, OTHER | LOC: M SOG 08:36 | PROVIDERS: ATTEND Physician Assistant | DX: M79.641 Pain in right hand (principal); M79.642 Pain in left hand ==

== ENCOUNTER → 2022-07-01 | Outpatient (CLI) | payer BC, OTHER | LOC: M RAD 15:50 | PROVIDERS: ATTEND Podiatrist | DX: I80.241 Phlebitis and thrombophlebitis of right peroneal vein (principal); M79.604 Pain in right leg ==

== ENCOUNTER → 2022-11-04 | Outpatient (CLI) | payer BC, OTHER ==
[~2022-11-04] MED LIST changes: +POTA-298 PO; -POTA1TAB14 PO
[2022-11-04 15:02] LABS: BASO % 0.9 % (0.0-1.0); EOS # 0.1 10^3/uL (0.0-0.5); HEMATOCRIT 35.1 % (42.0-52.0); HEMOGLOBIN 10.8 g/dl (13.5-17.5); LYMPH # 0.9 10^3/uL (1.5-5.0); LYMPH % 18.3 % (24.0-44.0); MEAN CORPUSCULAR HEMOGLOBIN 30.2 pg (27.0-33.0); MEAN CORPUSCULAR HGB CONC 30.8 g/dl (32.0-36.5); MONO # 0.5 10^3/uL (0.0-0.8); MONO % 10.1 % (2.0-8.0); NEUTROPHILS # 3.1 10^3/uL (1.5-8.5); NEUTROPHILS % 67.5 % (36.0-66.0); PLATELET COUNT, AUTOMATED 144 10^3/uL (150-450); RED BLOOD COUNT 3.58 10^6/uL (4.30-6.10); WHITE BLOOD COUNT 4.7 10^3/uL (4.0-10.0)
[2022-11-04 15:30] LABS: ERYTHROCYTE SEDIMENTATION RATE 6 mm/hr (0-20)
== END ==
LOC: M PLALAB 11:15
PROVIDERS: ATTEND Internal Medicine Infectious Disease
DX: I72.9 Aneurysm of unspecified site (principal)

== ENCOUNTER 2024-07-26 15:12 | Emergency (ER) | payer MEDICARE, BC ==
[~2024-07-26] VITALS: Ht 188 cm; Wt 79.5 kg
[~2024-07-26 15:12] MED LIST changes: +AMIO100T4 PO; -AMIO100T5 PO; +EZET10TA58 PO; -ZETI10TA16 PO
[2024-07-26 17:10] VITALS: BP 188/90; TEMP 97.2; O2SAT 99
== END 2024-07-26 17:31 | disposition left against medical advice (07) ==
LOC: M ED 15:12
DX: Z53.21 Procedure and treatment not carried out due to patient leaving prior to being seen by health care provider (principal)

== ENCOUNTER → 2025-03-13 | Outpatient (CLI) | payer MEDICARE, BC ==
[~2025-03-13] MED LIST changes: -AMIO200T49 PO; +AMIO200T54 PO; +SENN-225 PO; -SENO8.6T5 PO
== END ==
LOC: M PLAIMG 12:39
DX: R51.9 Headache, unspecified (principal); Z86.73 Personal history of transient ischemic attack (TIA), and cerebral infarction without residual deficits

== ENCOUNTER → 2025-03-21 | Outpatient (CLI) | payer MEDICARE, BC | LOC: M RAD 11:37 | DX: Z86.73 Personal history of transient ischemic attack (TIA), and cerebral infarction without residual deficits (principal) ==